=== PATIENT | male | born 1970 | race Caucasian/White ===

== ENCOUNTER 2019-05-13 19:51 | Inpatient (IN) | payer BC ==
--- NOTE | 2019-05-13 20:50 | ED ---
General Adult HPI - General Chief complaint: Weakness Stated complaint: SOB Time Seen by Provider: 05/13/19 20:04 Source: patient, RN/MD, RN notes reviewed, old records reviewed (Review of records from [facility]) Mode of arrival: EMS Limitations: no limitations - History of Present Illness Initial comments: Patient is a pleasant 48-year-old male presenting to the emergency Department with complaints of shortness of breath and dyspnea. Symptoms have progressed over the past 3 days. No history of similar symptoms previously. Patient does have known stage IV renal cancer with metastasis to the spine and brain. Patient does feel somewhat more short of breath with exertion. No significant cough. No chest pain. Patient feels generally weak all over. No isolated area of weakness or confusion. - Related Data Home Medications Medication Instructions Recorded Confirmed ALPRAZolam [Xanax] 1 mg PO TID PRN 05/13/19 05/13/19 ARIPiprazole [Abilify] 5 mg PO DAILY 05/13/19 05/13/19 Acetaminophen Tab [Tylenol Tab] 500 mg PO DAILY 05/13/19 05/13/19 Apixaban [Eliquis] 5 mg PO BID 05/13/19 05/13/19 Ascorbic Acid [Vitamin C] 500 mg PO BID 05/13/19 05/13/19 Citalopram Hydrobromide [CeleXA] 40 mg PO DAILY 05/13/19 05/13/19 Ferrous Sulfate [Feosol] 325 mg PO DAILY 05/13/19 05/13/19 Furosemide [Lasix] 20 - 40 mg PO DAILY 05/13/19 05/13/19 Gabapentin [Neurontin] 400 mg PO TID 05/13/19 05/13/19 Levothyroxine Sodium [Synthroid] 112 mcg PO DAILY 05/13/19 05/13/19 Polyethylene Glycol 3350 [Miralax] 17 gm PO DAILY PRN 05/13/19 05/13/19 Potassium Chloride ER [K-Dur 20] 20 meq PO DAILY 05/13/19 05/13/19 Tamsulosin [Flomax] 0.4 mg PO DAILY 05/13/19 05/13/19 Votrient 200mg 200 mg PO TID 05/13/19 05/13/19 oxyCODONE HCL [oxyCODONE HCL (IR)] 10 mg PO Q4H PRN 05/13/19 05/13/19 Allergies Allergy/AdvReac Type Severity Reaction Status Date / Time albuterol [From Ventolin HFA] AdvReac Unknown Verified 05/13/19 21:18 Review of Systems ROS Statement: Those systems with pertinent positive or pertinent negative responses have been documented in the HPI. ROS Other: All systems not noted in ROS Statement are negative. Constitutional: Denies: fever Eyes: Denies: eye pain ENT: Denies: ear pain Respiratory: Reports: as per HPI, dyspnea Cardiovascular: Denies: chest pain Endocrine: Denies: fatigue Gastrointestinal: Denies: abdominal pain Genitourinary: Denies: dysuria Musculoskeletal: Denies: back pain Skin: Denies: rash Neurological: Reports: as per HPI, headache Past Medical History Past Medical History: Cancer History of Any Multi-Drug Resistant Organisms: None Reported Additional Past Surgical History / Comment(s): R kidney removed due to CA Past Psychological History: No Psychological Hx Reported Smoking Status: Former smoker Past Alcohol Use History: None Reported Past Drug Use History: None Reported General Exam Limitations: no limitations General appearance: alert, in no apparent distress Head exam: Present: normocephalic Eye exam: Present: normal appearance ENT exam: Present: normal oropharynx Neck exam: Present: normal inspection Respiratory exam: Present: rales (Rales on the right side), decreased breath sounds (On the left side) Cardiovascular Exam: Present: regular rate, normal rhythm Expanded Peripheral pulses: 2+: Posterior Tibialis (R), Posterior Tibialis (L) GI/Abdominal exam: Present: soft. Absent: tenderness Extremities exam: Present: pedal edema. Absent: other Neurological exam: Present: alert Psychiatric exam: Present: flat affect Skin exam: Present: pallor, other (Patient does have some greenish discoloration to the legs which he states is chronic from his medications.) Course Vital Signs 05/13/19 19:57 Temperature 98.7 F Pulse Rate 98 Respiratory 22 Rate Blood Pressure 103/68 O2 Sat by Pulse 89 L Oximetry - Reevaluation(s) Reevaluation #1: 05/13/19 21:46 Chest x-ray report reviewed showing large left infiltrate, cannot rule out underlying atelectasis or infiltrates. There is some concern for possible infiltrate/pneumonia. Patient will be started on antibiotics. There is concern for potential sepsis. Blood culture and lactic acid will be ordered. Lactic acid done at [place] was 2.3. 05/13/19 21:51 Case was discussed in detail with Dr. pavon, who will admit. Medical Decision Making - Medical Decision Making Patient is updated on plan. - Radiology Data Radiology results: image reviewed (Review chest x-ray from [place] showing near complete opacification left lung field.) Disposition Clinical Impression: Pleural effusion Disposition: ADMITTED IP TO THIS HOSP Condition: Poor Is patient prescribed a controlled substance at d/c from ED?: No Referrals: Hang Elizalde MD [Primary Care Provider] - 1-2 days Decision Time: 21:44
[2019-05-13] MEDS ORDERED: AZITHROMYCIN 500 MG in SODIUM CHLORIDE 0.9% 250 ML IVPB STA (21:47)
[2019-05-13] MEDS ORDERED: PNEUMONIA PROTOCOL UTILIZED 1 EACH MISC PO PRN (21:47)
[2019-05-13] MEDS: SODIUM CHLORIDE 0.9% 1,000 ML IV SCH (22:53)
[2019-05-14 01:12] VITALS: BMI 30.4
--- NOTE | 2019-05-14 09:29 | XR ---
EXAMINATION TYPE: XR chest 2V DATE OF EXAM: 05/14/2019 COMPARISON: Outside chest x-ray from yesterday. HISTORY: Pneumonia and cough. TECHNIQUE: Frontal and lateral views of the chest are obtained. FINDINGS: There is redemonstration of right-sided [employer] shunt catheter. There is redemonstration of lar ge Maldonado rods from attempted scoliotic correction surgery. Completely opacified left hemithorax with perhaps slight mediastinal shift away is redemonstrated. Silhouetting left heart border again se en. Right lung remains clear.. IMPRESSION: As above. Cannot exclude large effusion. Cannot exclude obstructing central mass. Consid er further investigation with CT and/or ultrasound.
--- NOTE | 2019-05-14 09:49 | US ---
EXAMINATION TYPE: US chest DATE OF EXAM: 05/14/2019 COMPARISON: Chest x-ray earlier today. CLINICAL HISTORY: Markings for thoracentesis for pulmonary staff. Left pleural effusion TECHNIQUE: Targeted ultrasound of the posterior lower left hemithorax EXAM MEASUREMENTS: Left Pleural Effusion pocket size: 15.0 cm Left skin surface to fluid distance: 5.1 cm Left side marked for possible thoracentesis outside the dept. Pulmonologists are able to review the images in the patient?s EMR. IMPRESSIONS: Images saved confirming large left pleural effusion.
--- NOTE | 2019-05-14 11:23 | P.CONS ---
History of Present Illness - Reason for Consult Consult date: 05/14/19 metastatic RCC on votrient Requesting physician: Ruben Coy - Chief Complaint YU - History of Present Illness Mr. Sagastume is a very pleasant male pt of Dr. Rios initially diagnosed with right kidney cancer in 2013. He had radical rt nephrectomy 11/23/2013. Pathology revealed 12.2cm clear cell carcinoma, focally invaded renal sinus fat but not beyond gerota fascia, staged pT3aNx disease. He did well until May 2017 when he presented with dizziness and progressive back pain. MRI of thoracic spine showed soft tissue mass and spinal cord compression at T9-T10 and T11, there was also a solitary cerebellar lesion. Had decompression laminectomy and resection of T spine mass on 05/29/2017 and resection of the cerbellar lesion on 06/07/2017 at [facility]. Pathology revealed clear cell carcinoma. He had complication with wound infection and unfortunately he developed local recurrence in cerebellum and development of meningocele and further progression of T spine lesions. He was referred to [facility], underwent another craniotomy with resection of cerebellar lesion and placement of ventriculoperitoneal shunt on 08/22/17 and further laminectomy of T spine on 08/27/17. CT abd 08/16/17 revealed bilateral pulmonary nodules suspicious for metastatic disease. He completed palliative radiation to brain and thoracic spine at [facility] on 10/02/17. Developed DVT in September,, placed on eliquis. CT chest 10/16/17 revealed 3.2cm mediastinal node, small lung nodules up to 7mm, small right pleural effusion. He started votrient 10/19/17 and zometa. Treatment f/u scans 01/02/18-04/21/19 were stable, with no evidence of progression. Pt was suggested to reduce votrient dose when he last seen Dr. Rios on 04/28 due to progressive anorexia, some diarrhea but, pt turned med over to RN and states he is taking 4-which is the full dose. Progressive memory loss, felt could be from previous brain radiation. Pt states progressive difficulty breathing, denied fever, nausea, vomiting, abd pain, bloating, cramping, dysuria, unaware of any bleeding, no swelling in the legs, ambulates with assistive device. Review of Systems 14 point review of systems is negative except as stated in HPI Past Medical History Past Medical History: Cancer History of Any Multi-Drug Resistant Organisms: None Reported Past Surgical History: Orthopedic Surgery Additional Past Surgical History / Comment(s): R kidney removed due to CA, back Past Psychological History: No Psychological Hx Reported Smoking Status: Former smoker Past Alcohol Use History: None Reported Past Drug Use History: None Reported Medications and Allergies Home Medications Medication Instructions Recorded Confirmed Type ALPRAZolam [Xanax] 1 mg PO TID PRN 05/13/19 05/13/19 History ARIPiprazole [Abilify] 5 mg PO DAILY 05/13/19 05/13/19 History Acetaminophen Tab [Tylenol Tab] 500 mg PO DAILY 05/13/19 05/13/19 History Apixaban [Eliquis] 5 mg PO BID 05/13/19 05/13/19 History Ascorbic Acid [Vitamin C] 500 mg PO BID 05/13/19 05/13/19 History Citalopram Hydrobromide [CeleXA] 40 mg PO DAILY 05/13/19 05/13/19 History Ferrous Sulfate [Feosol] 325 mg PO DAILY 05/13/19 05/13/19 History Furosemide [Lasix] 20 - 40 mg PO DAILY 05/13/19 05/13/19 History Gabapentin [Neurontin] 400 mg PO TID 05/13/19 05/13/19 History Levothyroxine Sodium [Synthroid] 112 mcg PO DAILY 05/13/19 05/13/19 History Polyethylene Glycol 3350 [Miralax] 17 gm PO DAILY PRN 05/13/19 05/13/19 History Potassium Chloride ER [K-Dur 20] 20 meq PO DAILY 05/13/19 05/13/19 History Tamsulosin [Flomax] 0.4 mg PO DAILY 05/13/19 05/13/19 History Votrient 200mg 200 mg PO TID 05/13/19 05/13/19 History oxyCODONE HCL [oxyCODONE HCL (IR)] 10 mg PO Q4H PRN 05/13/19 05/13/19 History Allergies Allergy/AdvReac Type Severity Reaction Status Date / Time albuterol [From Ventolin HFA] AdvReac Unknown Verified 05/13/19 21:18 Physical Exam Vitals: Vital Signs Temp Pulse Pulse Resp BP BP Pulse Ox 05/14/19 05:37 98.5 F 84 16 111/76 91 L 05/14/19 05:10 94 L 05/14/19 01:40 93 L 05/14/19 00:10 98.6 F 85 16 91/67 88 L 05/13/19 22:19 97 22 107/80 93 L 05/13/19 19:57 98.7 F 98 22 103/68 89 L Intake and Output 05/13/19 05/14/19 05/14/19 22:59 06:59 14:59 Intake Total 250 Balance 250 Intake: Intake, IV Titration 250 Amount Azithromycin 500 mg In 250 Sodium Chloride 0.9% 250 ml @ 250 mls/hr IVPB ONCE STA Rx#:[id number] Other: Weight 88.269 kg - Constitutional General appearance: average body habitus, cooperative, no acute distress - EENT Eyes: anicteric sclerae, EOMI ENT: hearing grossly normal, normal oropharynx - Neck Neck: no lymphadenopathy - Respiratory Respiratory: right: CTA, left: diminished (Dullness to percussion in the lower portion of the lung posterior chest) - Cardiovascular Rhythm: regular Heart sounds: normal: S1, S2 Abnormal Heart Sounds: no systolic murmur, no diastolic murmur, no rub, no S3 Gallop, no S4 Gallop, no click, no other leg Peripheral Edema: bilateral: None - Gastrointestinal General gastrointestinal: no absent bowel sounds, no decreased bowel sounds, no distended, no hepatomegaly, no hyperactive bowel sounds, normal bowel sounds, no organomegaly, no rigid, no scaphoid, soft, no splenomegaly, no tenderness, no umbilical hernia, no ventral hernia - Integumentary Integumentary: pale - Neurologic Neurologic: CNII-XII intact - Musculoskeletal Musculoskeletal: generalized weakness, strength equal bilaterally - Psychiatric Mild confusion when discussing medications Psychiatric: A&O x's 3, appropriate affect Results Labs: Abnormal Lab Results - Last 24 Hours (Table) 05/13/19 Range/Units 22:24 Plasma Lactic Acid [place] 2.3 H* (0.7-2.0) mmol/L Comments: Ultrasound of the chest report reviewed Chest x-ray: report reviewed Assessment and Plan (1) Pleural effusion Narrative/Plan: US done, plan for thoracentesis for palliation of symptoms. Pulm will send for cytology. I am not aware of any previous malignant effusions. If positive, could indicate disease progression. Current Visit: Yes Status: Acute Priority: High Code(s): J90 - PLEURAL EFFUSION, NOT ELSEWHERE CLASSIFIED SNOMED Code(s): 00118424 (2) Metastatic renal cell carcinoma Narrative/Plan: Pt has been on votrient for since about 10/2017. Nost recent scan 04/23 did not have evidence for disease progression. Will hold votrient for a few days while inpatient. Pending thoracentesis and cytology He has to continue to hold zometa for bone mets due to poor dentition Current Visit: Yes Status: Chronic Priority: High Code(s): C64.9 - MALIGNANT NEOPLASM OF UNSP KIDNEY, EXCEPT RENAL PELVIS SNOMED Code(s): 638188310 (3) DVT (deep venous thrombosis) Narrative/Plan: Cont eliquis for now Current Visit: No Status: Chronic Priority: Medium Code(s): I82.409 - ACUTE EMBOLISM AND THOMBOS UNSP DEEP VN UNSP LOWER EXTREMITY SNOMED Code(s): 559064165 Plan: Will request CBC and CMP for eval Pt was incontinent of stool with very foul odor-send for c-diff and occult (very dark color) Cardiac monitoring Attests: I have performed H&P and developed impression and plan of care of patient, discussed with dictator. I agree with dictated note, documented as a scribe.
[2019-05-14] MEDS ORDERED: POLYETHYLENE GLYCOL 3350 17 GM POWD.PACK PO PRN (11:25)
[2019-05-14] MEDS: ALPRAZolam 1 MG TAB PO SCH ×2 (12:08→21:03)
[2019-05-14] MEDS: GABAPENTIN 400 MG CAP PO SCH ×3 (12:08→21:03)
--- NOTE | 2019-05-14 14:25 | XR ---
EXAMINATION TYPE: XR chest 1V DATE OF EXAM: 05/14/2019 COMPARISON: 05/14/2019 HISTORY: Postthoracentesis TECHNIQUE: Single frontal view of the chest is obtained. FINDINGS: Interval reduction in amount pleural fluid on the left with persistent consolidation and p leural effusion suspected. No sizable pneumothorax. There is a [employer] shunt catheter overlying the right thorax and abdomen. Right lung is clear. Heart is enlarged. Arthropathy of the shoulders. Postsurgica l changes involving the vertebral column. IMPRESSION: 1. Improved aeration left hemithorax post thoracentesis with no sizable pneumothorax.
[2019-05-14] MEDS: BUDESONIDE 1 MG/2 ML NEBU INHALATION SCH ×2 (15:19→19:24)
--- NOTE | 2019-05-14 15:29 | HP ---
HISTORY AND PHYSICAL DATE OF SERVICE: 05/14/2019 CHIEF COMPLAINT: Diarrhea as well as shortness of breath. HISTORY OF PRESENT ILLNESS: This is a 48-year-old gentleman with a past medical history of multiple medical problems including metastatic renal cell carcinoma, history of right kidney cancer, being followed by Tonio Blackman and as well as Dr. Rios in the outpatient setting was noted to have increasing shortness of breath and as well as diarrhea. The patient is on immune chemotherapy. The patient is also complaining of weak also. The patient has also with change in his mental status. The patient is rather confused on and off according to the family, according to the . The gurgling and shortness of breath concerned the and the patient. The patient was taken to [facility] and subsequently sent to [facility] for further evaluation and treatment. Evaluation showed evidence of significant pleural effusion and possibly atelectasis of the left side of the lung and patient admitted for further evaluation and treatment. A detailed history cannot be taken of the patient because of the patient's change in mental status. Most of the history was taken from my discussion with staff, review of chart and also discussion with the at this time. PAST MEDICAL HISTORY: History of renal cell carcinoma with multiple mets as mentioned earlier, history of DJD. MEDICATIONS: Prior to admission, home medications are: 1. Oxycodone 10 mg q.4 p.r.n. 2. Votrient 200 mg p.o. t.i.d. 3. Flomax 0.4 daily. 4. K-Dur 20 mEq p.o. daily. 5. MiraLAX 17 g p.o. daily p.r.n. 6. Synthroid 112 mcg p.o. daily. 7. Neurontin 400 mg p.o. t.i.d. 8. Lasix 20-40 mg p.o. daily. 9. Iron sulfate 320 mg p.o. daily. 10.Celexa 40 mg p.o. daily. 11.Vitamin C 500 mg p.o. b.i.d. 12.Eliquis 5 mg p.o. b.i.d. 13.Tylenol 500 mg p.o. daily. 14.Abilify 5 mg p.o. daily. 15.Xanax 1 mg p.o. t.i.d. p.r.n. ALLERGIES: ALBUTEROL. FAMILY HISTORY: No history of heart disease or strokes in the family. SOCIAL HISTORY: Previous history of smoking. No history of alcohol intake. REVIEW OF SYSTEMS: ENT: No diminished hearing or diminished vision. CARDIOVASCULAR SYSTEM: No angina or palpitations. RESPIRATORY: As mentioned earlier. GI: No nausea. : No dysuria. NERVOUS SYSTEM: No numbness or weakness. ALLERGY/IMMUNOLOGY: No asthma or hayfever. MUSCULOSKELETAL: As mentioned earlier. HEMATOLOGY: No history of anemia. ENDOCRINE: No history of diabetes or hypothyroidism. CONSTITUTIONAL: As mentioned earlier. DERMATOLOGY: Negative. PSYCHIATRY: As mentioned earlier. PHYSICAL EXAM: Patient is alert and oriented x1. Pulse 82, blood pressure 101/62, respiration 20, temperature 98.5, pulse ox 98% on 4 L. HEENT: Conjunctivae normal. Oral mucosa moist. NECK: No jugular venous distention. No lymph node enlargement. CARDIOVASCULAR SYSTEM: S1, S2, muffled. RESPIRATION: Breath sounds diminished at the bases, a few scattered rhonchi, no crackles. ABDOMEN: Soft, nontender. No mass palpable. LEGS: No edema, no swelling. NERVOUS SYSTEM: Higher functions as mentioned earlier. Moves all 4 limbs. No focal motor deficits. LYMPHATICS: No lymph node enlargement in the neck or axillae. SKIN: No ulcer, rash, bleeding. JOINTS: No active deforming arthropathy. LABS: Lactic acid 2.3. ASSESSMENT: 1. Shortness of breath, possibly secondary to left pleural effusion, left lobe atelectasis. 2. Renal cell carcinoma with metastatic disease. 3. Change in mental status, acute on chronic metabolic encephalopathy secondary to brain METS. 4. History of degenerative joint disease. RECOMMENDATION: This is a 48-year-old gentleman who presented with multiple complex medical issues. At this time, I would recommend to continue with the current management and symptomatic treatment. Otherwise, Dr. Hernández has evaluated the patient and planning possibly thoracocentesis. Otherwise, I would also recommend empiric bronchodilators and as well continue the rest of the home medications. Consultation with Hematology, Oncology. I would also recommend a CAT scan of the abdomen and pelvis also and chest as well. The overall prognosis guarded because of multiple complex medical issues. Further recommendations to follow. A copy of this will be forwarded to Dr. Tonio Blackman who is the primary physician. MMODL / IJN: [id number] / MTDD
[2019-05-14 15:43] LABS: Albumin 2.7 g/dL (3.5-5.0); Total Bilirubin 0.7 mg/dL (0.2-1.3); Total Protein 5.4 g/dL (6.3-8.2)
[2019-05-14 15:55] LABS: Anisocytosis Slight; Basophils % (A) 1 %; Eosinophils % (A) 0 %; HCT 35.8 % (39.0-53.0); HGB 11.2 gm/dL (13.0-17.5); Hypochromasia Marked; Lymphocytes # (A) 0.3 k/uL (1.0-4.8); Lymphocytes % (A) 8 %; MCH 32.7 pg (25.0-35.0); MCHC 31.3 g/dL (31.0-37.0); MCV 104.4 fL (80.0-100.0); Macrocytosis Marked; Mean Platelet Volume 6.2; Monocytes # (A) 0.2 k/uL (0-1.0); Monocytes % (A) 7 %; Neutrophils # (A) 2.7 k/uL (1.3-7.7); Neutrophils % (A) 80 %; Platelet Count 291 k/uL (150-450); Poikilocytosis Marked; RBC 3.43 m/uL (4.30-5.90); RDW 19.1 % (11.5-15.5); WBC 3.3 k/uL (3.8-10.6)
[2019-05-14] MEDS ORDERED: GABAPENTIN 400 MG CAP PO SCH (16:00)
[2019-05-14] MEDS ORDERED: ALPRAZolam 1 MG TAB PO SCH (16:00)
[2019-05-14 16:13] LABS: Appearance,BF Bloody; Nucleated Cells, Body Fluid 500 /uL; RBC, Body Fluid 125000 /uL
[2019-05-14 16:14] LABS: Mononuclear WBC,Body Fluid 51 %; Polynuclear WBC,Body Fluid 49 %; Total Cells Counted,Body Fluid 100
--- NOTE | 2019-05-14 16:16 | CT ---
EXAMINATION TYPE: CT ChestAbdPelvis wo con DATE OF EXAM: 05/14/2019 COMPARISON: Chest radiograph same day HISTORY: 48-year-old male Left pleural effusion TECHNIQUE: Contiguous axial scanning of the chest, abdomen, and pelvis without IV contrast. Coronal a nd sagittal reconstructions performed. CT DLP: 1443 mGycm Automated exposure control for dose reduction was used. FINDINGS: CHEST: Heart normal size with trace pericardial thickening/effusion. Aorta normal caliber with mild atherosclerotic calcifications in bovine configuration to the aortic a rch. Scattered small mediastinal lymph nodes are demonstrated. No thoracic lymphadenopathy by CT size crit eria. There is residual moderate left pleural effusion. Left upper lobe shows some septal lines and patchy groundglass and more confluent groundglass and consolidation within the lingula. Most of the left low er lobe is collapsed adjacent to the effusion. There is some luminal irregularity of the proximal left lower lobar bronchus, refer to axial image 27 . Focal subpleural opacity posteromedial right mid lung measures 4.0 x 1.1 cm, uncertain etiology, poss ible scarring. Trace right effusion is also present. Difficult to exclude nodular atelectasis versus a 1.3 cm posterior right basilar pulmonary nodule. ABDOMEN: Lack of IV contrast limits assessment of the solid abdominal viscera, lymph nodes, and vascular struc tures. Noncontrast appearance of the liver, left adrenal gland, and atrophic pancreas shows no gross abnorma lity. Right kidney is absent, possibly surgically absent. Gallbladder is hydropic and 5.1 cm wide and filled with sludge. No surrounding inflammation. Left-sided perinephric stranding and mild pelvicaliectasis suggested. No obstructing calculi. Underly ing renal lesions particularly at the lower pole are difficult to exclude given the lobulated contour s, refer to coronal image 53 and axial image 73. A [employer] shunt catheter enters the anterior right mid abdomen and is looped in the pelvis. No dilated small bowel, free fluid, or free air. Mild circumferential wall thickening descending colon and proximal sigmoid colon. No significant stoo l burden. Pelvis: Bladder is markedly distended measuring up to 14.1 cm. No pelvic lymphadenopathy. Trace pelvic free f luid or abnormal in a male possibly due to the [employer] shunting. Bones: Posterior fusion hardware extending from T7 through L2 levels. Vertebroplasty at multiple levels. Foc al scalloping along the posterior vertebral body margins lower thoracic spine may reflect prior dural ectasia. Laminectomy spanning from T8 through T12 levels. Grade 1 anterolisthesis at L4-L5 secondary to hypertrophic facet arthropathy. IMPRESSION: 1. RESIDUAL MODERATE LEFT PLEURAL EFFUSION. SEPTAL LINES AND PATCHY GROUNDGLASS IN THE LEFT UPPER LOB E IS NONSPECIFIC AND COULD REPRESENT PNEUMONITIS OR EARLY REEXPANSION PULMONARY EDEMA. MORE EXTENSIVE OPACITY IN THE LINGULA COULD REPRESENT PNEUMONIA. FOLLOW-UP RECOMMENDED. 2. SOME BRONCHIAL WALL IRREGULARITY INVOLVING THE PROXIMAL LEFT LOWER LOBAR BRANCH. CONSIDER BRONCHOS COPIC EVALUATION TO EXCLUDE AN ENDOBRONCHIAL LESION. 3. MOST OF THE LEFT LOWER LOBE IS COLLAPSED ADJACENT TO THE EFFUSION. 4. TRACE RIGHT EFFUSION AND FOCAL 4.0 X 1.1 CM SUBPLEURAL DENSITY POSTEROMEDIAL RIGHT MID LUNG, POSSI BLE SCARRING. REASSESS AT A 3 MONTH FOLLOW-UP. ALSO, EITHER NODULAR ATELECTASIS OR A 1.3 CM POSTERIOR RIGHT BASILAR PULMONARY NODULE SHOULD ALSO BE REASSESSED AT FOLLOW-UP. 5. THE RIGHT KIDNEY IS ABSENT, POSSIBLY ON A SURGICAL BASIS. CLINICALLY CORRELATE. 6. LEFT-SIDED PERINEPHRIC STRANDING AND MILD PELVICALIECTASIS. CORRELATE TO EXCLUDE UNDERLYING INFECT ION. ALSO, PROMINENT CONTOUR LOBULATIONS ALONG THE LOWER POLE; UNDERLYING MASS NOT EXCLUDED ON THIS N ONCONTRAST STUDY. CONTRAST ENHANCED FOLLOW-UP RECOMMENDED. 7. MILD CIRCUMFERENTIAL WALL THICKENING DESCENDING AND PROXIMAL SIGMOID COLON COULD BE SECONDARY TO N ONDISTENTION OR NONSPECIFIC MILD COLITIS. 8. MARKED URINARY BLADDER DISTENTION UP TO 14.1 CM. PLEASE CORRELATE TO ENSURE THAT THIS REPRESENTS V OLUNTARY RETENTION.
[2019-05-14 16:26] LABS: Potassium 4.4 mmol/L (3.5-5.1)
--- NOTE | 2019-05-14 20:14 | CONS ---
CONSULTATION This is a pulmonary/critical care consultation. REASON FOR CONSULTATION: Shortness of breath and weakness. This is a patient who was transferred down from [facility]. This is a 48- year-old gentleman with a history of advanced stage IV hypernephroma. 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 He complains of shortness of breath. He was found to have complete opacification or near-complete opacification of the left lung. Appears to have a large left pleural effusion, likely malignant. Today, we did a thoracentesis on the left side. We removed 2100 mL from the left pleural space. His post thoracentesis x-ray showed additional fluid there and I am going to have Cardiothoracic see the patient for possible PleurX catheter placement because I am sure the fluid will return. The fluid was sent for analysis. The results are currently pending. He did feel better after the procedure. HOME MEDICATIONS: Include Xanax, Abilify, Tylenol, Eliquis, vitamin C, Celexa, iron, Lasix, Neurontin, Synthroid, MiraLAX, K-Dur, Flomax, Votrient, and oxycodone. ALLERGIES: ALBUTEROL. PAST MEDICAL HISTORY: Includes kidney cancer, stage IV, with METS to the brain and spine. The right kidney was actually removed in the past. Other history is not well known other than probable hypothyroidism and anxiety. He also has chronic anemia. SURGICAL HISTORY: Includes a right-sided nephrectomy. SOCIAL HISTORY: Positive for previous tobacco use. He denies any alcohol use or illicit drug use. FAMILY HISTORY: Noncontributory. His father is still alive and is relatively healthy and runs a jail up in that area. His father does have history of coronary disease. REVIEW OF SYSTEMS: CONSTITUTIONAL: Profound weakness. NEUROLOGIC negative. HEENT negative. CARDIOVASCULAR negative. PULMONARY: Shortness of breath. GI negative. negative. RHEUMATOLOGIC negative. IMMUNOLOGIC negative. ENDOCRINOLOGIC negative. DERMATOLOGIC negative. PHYSICAL EXAMINATION: VITAL SIGNS: Current vital signs are reviewed. Temperature 98.5. Heart rate 88, respiratory rate 20, blood pressure 104/66, mean 78. 5 L saturation 91%. GENERAL: Appears in no acute distress. He is very slow in his speech. HEENT examination is grossly unremarkable. Nasal O2 noted. NECK: Supple. Full range of motion. No adenopathy. Neck veins are flat. CARDIOVASCULAR examination reveals regular rhythm and rate. Heart sounds are distant. Heart rate about 85 beats per minute. No distinct murmur noted. S1, S2 normal. LUNGS: Reveal significantly impaired or decreased breath sounds on the left side. There is dullness in the left chest. Right chest is clear. ABDOMEN: Soft. Bowel sounds are heard. EXTREMITIES are intact. Minimal edema. SKIN: Without rash. NEUROLOGIC examination is brief but nonfocal. He does move all 4 extremities well. He also does have a well-healed scar in the midline of the back. LAB DATA: Reviewed. The only thing that I have on this patient here in this hospital is a lactic acid that was 2.3 and followup was 1.2. His N-terminal proBNP was 1200. His stools were positive for occult blood. C difficile studies are negative. His chest x-ray showed near complete opacification of left chest. Ultrasound revealed a large pleural effusion. Post thoracentesis x-ray was reviewed and showed improvement, but there was still quite a bit of fluid there. Medications are reviewed. ASSESSMENT: 1. Probable malignant left-sided effusion secondary to the patient's known history of advanced metastatic hypernephroma. 2. Status post right nephrectomy secondary to kidney cancer. 3. Metastatic hypernephroma of the spine and brain. 4. History of hypothyroidism. 5. History of anxiety. 6. Previous tobacco history. PLAN: Medications are reviewed. Additional recommendations and suggestions are forthcoming. I will put a consult in for Cardiothoracic surgery to consider placement of a PleurX catheter. Additional recommendations and suggestions are forthcoming. MMODL / IJN: [id number] /
[2019-05-14 20:29] LABS: Glucose, BF Source Pleural Fluid; Glucose, Body Fluid 39 mg/dL; Total Protein, Body Fluid 3800 mg/dL
--- NOTE | 2019-05-14 20:50 | PCN ---
PROCEDURE NOTE PROCEDURE PERFORMED: Left thoracentesis. PREOP DIAGNOSIS: Large left pleural effusion. POSTOP DIAGNOSIS: Large left pleural effusion. OPERATORS: Dr. Hernández and Dr. Samson. DESCRIPTION OF PROCEDURE: Left posterior chest was marked by ultrasound. The fluid will be sent for analysis. Roughly 2100 mL of fluid was removed from the left pleural space. The patient tolerated the procedure well. A chest x-ray was ordered to rule out pneumothorax. The fluid was bloody in appearance. Again, the patient tolerated procedure well. Chest x- ray ordered. The fluid will be sent for analysis. The posterior left chest was marked by ultrasound. There was no immediate complication. MMODL / IJN: [id number] /
[2019-05-14] MEDS ORDERED: ALPRAZolam 0.5 MG TAB PO PRN (21:00)
[2019-05-14] MEDS ORDERED: AZITHROMYCIN 500 MG TAB PO SCH (21:48)
[2019-05-15] MEDS: ALPRAZolam 1 MG TAB PO SCH ×4 (00:10→21:51)
[2019-05-15] MEDS: SODIUM CHLORIDE 0.9% 1,000 ML IV SCH ×2 (03:48→21:52)
[2019-05-15] MEDS: LEVOTHYROXINE 112 MCG TAB PO SCH (05:58)
[2019-05-15] MEDS: CITALOPRAM HYDROBROMIDE 20 MG TAB PO SCH (08:03)
[2019-05-15] MEDS: GABAPENTIN 400 MG CAP PO SCH ×3 (08:03→21:51)
[2019-05-15] MEDS: ARIPiprazole 5 MG TAB PO SCH (08:04)
[2019-05-15] MEDS: FERROUS SULFATE 325 MG TAB PO SCH (08:04)
[2019-05-15] MEDS: ACETAMINOPHEN TAB 500 MG TAB PO SCH (08:04)
[2019-05-15] MEDS: TAMSULOSIN 0.4 MG CAP.ER.24H PO SCH (08:04)
[2019-05-15] MEDS: FUROSEMIDE 40 MG TAB PO SCH (08:04)
[2019-05-15 08:55] LABS: Anisocytosis Slight; Basophils # (A) 0.1 k/uL (0-0.2); Basophils % (A) 2 %; Calcium 8.1 mg/dL (8.4-10.2); Eosinophils # (A) 0.1 k/uL (0-0.7); Eosinophils % (A) 2 %; HGB 12.2 gm/dL (13.0-17.5); Hypochromasia Marked; Lymphocytes # (A) 0.4 k/uL (1.0-4.8); Lymphocytes % (A) 13 %; MCH 33.7 pg (25.0-35.0); MCV 105.3 fL (80.0-100.0); Macrocytosis Marked; Mean Platelet Volume 6.1; Monocytes # (A) 0.3 k/uL (0-1.0); Monocytes % (A) 8 %; Neutrophils # (A) 2.2 k/uL (1.3-7.7); Neutrophils % (A) 71 %; Platelet Count 257 k/uL (150-450); Poikilocytosis Marked; RBC 3.61 m/uL (4.30-5.90); RDW 19.1 % (11.5-15.5); WBC 3.1 k/uL (3.8-10.6)
[2019-05-15] MEDS: BUDESONIDE 1 MG/2 ML NEBU INHALATION SCH ×2 (09:17→20:15)
--- NOTE | 2019-05-15 12:15 | P.PN ---
Subjective Progress Note Date: 05/15/19 Principal diagnosis: Acute hypoxic respiratory failure secondary to a near complete opacification of the left lung with large left pleural effusion. The patient is seen today 05/15/2019 in follow-up on the regular medical floor. He is awake and alert in no acute distress. Resting comfortably in bed. Breathing a bit easier today as compared to yesterday. On 5 L nasal cannula to maintain O2 saturations in the 90s. He is afebrile. Hemodynamically stable. He is status post 2100 ML's of bloody left pleural effusion removed yesterday by Dr. Hernández. Exudative in nature with the total protein 3.8 and LDH 626. Culture and cytology are pending. White count 3.1. Hemoglobin 12.2. Creatinine 1.26. Objective - Vital Signs Vital signs: Vital Signs Temp 98.7 F 05/15/19 05:00 Pulse 81 05/15/19 05:00 Resp 16 05/15/19 05:00 BP 103/68 05/15/19 05:00 Pulse Ox 98 05/15/19 05:00 Intake & Output 05/14/19 05/15/19 05/15/19 18:59 06:59 18:59 Intake Total 870 590 Output Total 1900 Balance -1030 590 Intake: Intake, IV Titration 290 Amount Sodium Chloride 0.9% 1, 240 000 ml @ 20 mls/hr IV . Q24H [facility] Rx#:[id number] cefTRIAXone 1 gm In 50 Sodium Chloride 0.9% 50 ml @ 100 mls/hr IVPB ONCE STA Rx#:[id number] Oral 580 590 Output: Drainage 1900 Left Chest 1900 Other: # Voids 1 1 # Bowel Movements 4 1 - Exam GENERAL EXAM: Alert, pleasant 48 year old gentleman, comfortable in no apparent distress. HEAD: Normocephalic. EYES: Normal reaction of pupils, equal size. NOSE: Clear with pink turbinates. THROAT: No erythema or exudates. NECK: No masses, no JVD. CHEST: No chest wall deformity. LUNGS: Equal air entry with crackles, diminished in the left lung base. CVS: S1 and S2 normal with no audible murmur, regular rhythm. ABDOMEN: No hepatosplenomegaly, normal bowel sounds, no guarding or rigidity. SPINE: No scoliosis or deformity SKIN: No rashes CENTRAL NERVOUS SYSTEM: Slow to respond due to shunting the brain from metastasi s. Tone is normal in all 4 extremities. EXTREMITIES: There is no peripheral edema. No clubbing, no cyanosis. Peripheral pulses are intact. - Labs CBC & Chem 7: 05/15/19 08:17 05/15/19 08:17 Labs: Abnormal Lab Results - Last 24 Hours (Table) 05/14/19 05/14/19 05/15/19 Range/Units 14:50 14:50 08:17 WBC 3.3 L 3.1 L (3.8-10.6) k/uL RBC 3.43 L 3.61 L (4.30-5.90) m/uL Hgb 11.2 L 12.2 L (13.0-17.5) gm/dL Hct 35.8 L 38.0 L (39.0-53.0) % MCV 104.4 H 105.3 H (80.0-100.0) fL RDW 19.1 H 19.1 H (11.5-15.5) % Lymphocytes # 0.3 L 0.4 L (1.0-4.8) k/uL Macrocytosis Marked A Marked A Sodium 132 L (137-145) mmol/L Chloride 92 L (98-107) mmol/L Carbon Dioxide 32 H (22-30) mmol/L BUN 26 H (9-20) mg/dL Creatinine 1.34 H (0.66-1.25) mg/dL Calcium 8.0 L (8.4-10.2) mg/dL Total Protein 5.4 L (6.3-8.2) g/dL Albumin 2.7 L (3.5-5.0) g/dL 05/15/19 Range/Units 08:17 WBC (3.8-10.6) k/uL RBC (4.30-5.90) m/uL Hgb (13.0-17.5) gm/dL Hct (39.0-53.0) % MCV (80.0-100.0) fL RDW (11.5-15.5) % Lymphocytes # (1.0-4.8) k/uL Macrocytosis Sodium 135 L (137-145) mmol/L Chloride (98-107) mmol/L Carbon Dioxide (22-30) mmol/L BUN (9-20) mg/dL Creatinine 1.26 H (0.66-1.25) mg/dL Calcium 8.1 L (8.4-10.2) mg/dL Total Protein (6.3-8.2) g/dL Albumin (3.5-5.0) g/dL Microbiology - Last 24 Hours (Table) 05/14/19 14:00 Gram Stain - Preliminary Pleural Fluid Body Fluid Culture - Preliminary 05/14/19 14:00 Acid Fast Bacilli Smear - Final Pleural Fluid Acid Fast Bacilli Culture - Preliminary 05/13/19 22:24 Blood Culture - Preliminary Blood No Growth after 24 hours 05/14/19 14:00 Fungal Culture - Preliminary Pleural Fluid Assessment and Plan Assessment: Impression: #1 Acute hypoxic respiratory failure secondary to moderate to large pleural effusion with near complete opacification of the left lung. Status post thoracentesis with 2.1 L of exudative fluid removed. Cultures and cytology pending. #2 Status post right nephrectomy secondary to kidney cancer. #3 Metastatic hypernephroma to the spine and brain. #4 Hypothyroidism. #5 History of anxiety. #6 Previous history of tobacco dependence. Plan: The patient was seen and evaluated by Dr. Hernández. We did consult cardiothoracic surgery for possible Pleurx catheter placement. The plan is for the procedure on 05/18/2019. We'll continue with his current medications. Increase his activity as tolerated. We'll continue to follow. I, the cosigning physician, performed a history & physical examination of the patient. Lungs sounds have crackles, diminished in the left base. Maintaining good O2 saturations in the 90s on 2 L/m per nasal cannula. I discussed the assessment and plan of care with my nurse practitioner, Mini Samson. I attest to the above note as dictated by her.
--- NOTE | 2019-05-15 14:18 | P.GSCN ---
History of Present Illness Consult date: 05/15/19 Reason for Consult: Left-sided pleural effusion, possible Pleurx catheter placement Requesting physician: Mini Samson History of present illness: This is a 48-year-old gentleman who follows on an outpatient basis with Dr. Elizalde, Dr. Rios, and Dr. Hernández. He has a previous medical history of renal cell carcinoma with metastasis to the brain and spine currently receiving oral chemotherapy, status post right nephrectomy, pulmonary embolism and bilateral DVTs on Eliquis for anticoagulation, [employer] shunt, back surgery for resection of spinal tumor, previous tobacco dependence, and previous EtOH use. He presented to [facility] emergency room with complaints of worsening shortness of breath and productive cough over the previous 2-3 days. He denied any fever, lower extremity edema, chest pain, nausea, vomiting. States his symptoms were worse worse with exertion and partially relieved with rest. He checked his oxygen saturation as was found to be 81% on room air. Chest x-ray completed at [facility] demonstrated complete opacification of the left lung, consistent with large left pleural effusion. He was transferred to [facility] for further treatment, and was admitted with consultation placed to pulmonology. Yesterday Dr. Hernández performed a thoracentesis with removal of 2100 mL bloody fluid which was sent for cytology. Post thoracentesis x-ray demonstrated fluid still present, although the patient did admit to feeling better. Dr. De La Rosa from cardiothoracic surgery was consulted for placement of Pleurx catheter. Review of Systems Review of systems was completed and was negative except as noted in the HPI Past Medical History Past Medical History: Cancer, Deep Vein Thrombosis (DVT), Pulmonary Embolus (PE) Additional Past Medical History / Comment(s): Renal cell carcinoma diagnosed in 2013 with metastasis to the brain and spine History of Any Multi-Drug Resistant Organisms: None Reported Past Surgical History: Back Surgery, Orthopedic Surgery, Ventriculoperitoneal Shunt Additional Past Surgical History / Comment(s): R kidney removed due to CA, back Past Anesthesia/Blood Transfusion Reactions: No Reported Reaction Past Psychological History: No Psychological Hx Reported Smoking Status: Former smoker Past Alcohol Use History: None Reported Additional Past Alcohol Use History / Comment(s): Recovering alcoholic Past Drug Use History: None Reported - Past Family History Father History Unknown: Yes Additional Family Medical History / Comment(s): Patient was adopted, does not know any family history Medications and Allergies Home Medications Medication Instructions Recorded Confirmed Type ALPRAZolam [Xanax] 1 mg PO TID PRN 05/13/19 05/13/19 History ARIPiprazole [Abilify] 5 mg PO DAILY 05/13/19 05/13/19 History Acetaminophen Tab [Tylenol Tab] 500 mg PO DAILY 05/13/19 05/13/19 History Apixaban [Eliquis] 5 mg PO BID 05/13/19 05/13/19 History Ascorbic Acid [Vitamin C] 500 mg PO BID 05/13/19 05/13/19 History Citalopram Hydrobromide [CeleXA] 40 mg PO DAILY 05/13/19 05/13/19 History Ferrous Sulfate [Feosol] 325 mg PO DAILY 05/13/19 05/13/19 History Furosemide [Lasix] 20 - 40 mg PO DAILY 05/13/19 05/13/19 History Gabapentin [Neurontin] 400 mg PO TID 05/13/19 05/13/19 History Levothyroxine Sodium [Synthroid] 112 mcg PO DAILY 05/13/19 05/13/19 History Polyethylene Glycol 3350 [Miralax] 17 gm PO DAILY PRN 05/13/19 05/13/19 History Potassium Chloride ER [K-Dur 20] 20 meq PO DAILY 05/13/19 05/13/19 History Tamsulosin [Flomax] 0.4 mg PO DAILY 05/13/19 05/13/19 History Votrient 200mg 200 mg PO TID 05/13/19 05/13/19 History oxyCODONE HCL [oxyCODONE HCL (IR)] 10 mg PO Q4H PRN 05/13/19 05/13/19 History Allergies Allergy/AdvReac Type Severity Reaction Status Date / Time albuterol [From Ventolin HFA] AdvReac Unknown Verified 05/13/19 21:18 Surgical - Exam Vital Signs Temp Pulse Resp BP Pulse Ox 98.7 F 98 22 103/68 89 L 05/13/19 19:57 05/13/19 19:57 05/13/19 19:57 05/13/19 19:57 05/13/19 19:57 - General well developed, well nourished, no distress, no pain, chronically ill - Eyes PERRL, normal ocular movement - ENT no hearing loss - Neck no masses, no bruits, trachea midline - Respiratory Lungs sounds diminished on the left-hand side. Respirations even, nonlabored. Currently on 5 L nasal cannula with oxygen saturation 95%. - Cardiovascular S1, S2 present. Tachycardic but regular rate and rhythm, sinus tach on t elemetry. Palpable peripheral pulses bilaterally. Trace bilateral lower extremity edema present. No calf pain or tenderness noted. - Abdomen Abdomen: soft, non tender, bowel sounds - Genitourinary Deferred - Rectum Deferred - Integumentary no rash, no growths - Neurologic normal sensation - Musculoskeletal Generalized weakness present - Psychiatric Speech is slow and very quiet oriented to time, oriented to person, oriented to place Results - Labs 05/15/19 08:17 05/15/19 08:17 Abnormal Lab Results - Last 24 Hours (Table) 05/14/19 05/14/19 05/15/19 Range/Units 14:50 14:50 08:17 WBC 3.3 L 3.1 L (3.8-10.6) k/uL RBC 3.43 L 3.61 L (4.30-5.90) m/uL Hgb 11.2 L 12.2 L (13.0-17.5) gm/dL Hct 35.8 L 38.0 L (39.0-53.0) % MCV 104.4 H 105.3 H (80.0-100.0) fL RDW 19.1 H 19.1 H (11.5-15.5) % Lymphocytes # 0.3 L 0.4 L (1.0-4.8) k/uL Macrocytosis Marked A Marked A Sodium 132 L (137-145) mmol/L Chloride 92 L (98-107) mmol/L Carbon Dioxide 32 H (22-30) mmol/L BUN 26 H (9-20) mg/dL Creatinine 1.34 H (0.66-1.25) mg/dL Calcium 8.0 L (8.4-10.2) mg/dL Total Protein 5.4 L (6.3-8.2) g/dL Albumin 2.7 L (3.5-5.0) g/dL 05/15/19 Range/Units 08:17 WBC (3.8-10.6) k/uL RBC (4.30-5.90) m/uL Hgb (13.0-17.5) gm/dL Hct (39.0-53.0) % MCV (80.0-100.0) fL RDW (11.5-15.5) % Lymphocytes # (1.0-4.8) k/uL Macrocytosis Sodium 135 L (137-145) mmol/L Chloride (98-107) mmol/L Carbon Dioxide (22-30) mmol/L BUN (9-20) mg/dL Creatinine 1.26 H (0.66-1.25) mg/dL Calcium 8.1 L (8.4-10.2) mg/dL Total Protein (6.3-8.2) g/dL Albumin (3.5-5.0) g/dL Microbiology - Last 24 Hours (Table) 05/14/19 14:00 Gram Stain - Preliminary Pleural Fluid Body Fluid Culture - Preliminary 05/14/19 14:00 Acid Fast Bacilli Smear - Final Pleural Fluid Acid Fast Bacilli Culture - Preliminary 05/13/19 22:24 Blood Culture - Preliminary Blood No Growth after 24 hours 05/14/19 14:00 Fungal Culture - Preliminary Pleural Fluid Diabetes panel 05/14/19 05/15/19 Range/Units 14:50 08:17 Sodium 132 L 135 L (137-145) mmol/L Potassium 4.4 4.0 (3.5-5.1) mmol/L Chloride 92 L 98 (98-107) mmol/L Carbon Dioxide 32 H 27 (22-30) mmol/L BUN 26 H 20 (9-20) mg/dL Creatinine 1.34 H 1.26 H (0.66-1.25) mg/dL Glucose 84 77 (74-99) mg/dL Calcium 8.0 L 8.1 L (8.4-10.2) mg/dL AST 43 (17-59) U/L ALT 26 (21-72) U/L Alkaline Phosphatase 66 (38-126) U/L Total Protein 5.4 L (6.3-8.2) g/dL Albumin 2.7 L (3.5-5.0) g/dL Calcium panel 05/14/19 05/15/19 Range/Units 14:50 08:17 Calcium 8.0 L 8.1 L (8.4-10.2) mg/dL Albumin 2.7 L (3.5-5.0) g/dL Pituitary panel 05/14/19 05/15/19 Range/Units 14:50 08:17 Sodium 132 L 135 L (137-145) mmol/L Potassium 4.4 4.0 (3.5-5.1) mmol/L Chloride 92 L 98 (98-107) mmol/L Carbon Dioxide 32 H 27 (22-30) mmol/L BUN 26 H 20 (9-20) mg/dL Creatinine 1.34 H 1.26 H (0.66-1.25) mg/dL Glucose 84 77 (74-99) mg/dL Calcium 8.0 L 8.1 L (8.4-10.2) mg/dL Adrenal panel 05/14/19 05/15/19 Range/Units 14:50 08:17 Sodium 132 L 135 L (137-145) mmol/L Potassium 4.4 4.0 (3.5-5.1) mmol/L Chloride 92 L 98 (98-107) mmol/L Carbon Dioxide 32 H 27 (22-30) mmol/L BUN 26 H 20 (9-20) mg/dL Creatinine 1.34 H 1.26 H (0.66-1.25) mg/dL Glucose 84 77 (74-99) mg/dL Calcium 8.0 L 8.1 L (8.4-10.2) mg/dL Total Bilirubin 0.7 (0.2-1.3) mg/dL AST 43 (17-59) U/L ALT 26 (21-72) U/L Alkaline Phosphatase 66 (38-126) U/L Total Protein 5.4 L (6.3-8.2) g/dL Albumin 2.7 L (3.5-5.0) g/dL - Imaging Chest x-ray: report reviewed, image reviewed CT scan - abdomen: report reviewed, image reviewed CT scan - chest: report reviewed, image reviewed CT scan - pelvis: report reviewed, image reviewed Assessment and Plan Assessment: 1. Large left-sided pleural effusion, likely malignant 2. 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 Pulmonary embolism, bilateral DVTs, on Eliquis for anticoagulation, last do se 05/13/2019 4. [employer] shunt 5. Back surgery for resection of spinal tumor 6. Previous tobacco dependence Plan: Patient seen and examined at the bedside with present. Chart/diagnostics reviewed. Case discussed with Dr. De La Rosa. We did discuss placement of a Pleurx catheter with the patient and his , and this is an agreeable treatment to both of them. Patient will need to be off anticoagulation for another couple days and allow fluid to build up in order to place Pleurx catheter. Likely will not place catheter until Saturday. Continue medical management of other comorbidities per primary care service, pulmonology, and oncology. More recommendations to follow. Thank you for this consult. Please call us with any further questions Time with Patient: Greater than 30
--- NOTE | 2019-05-15 15:17 | P.PN ---
Subjective Progress Note Date: 05/15/19 Principal diagnosis: Metastatic Renal Cell Audible crackles. Alert and oriented Objective - Vital Signs Vital signs: Vital Signs Temp 97.4 F L 05/15/19 13:27 Pulse 97 05/15/19 13:27 Resp 17 05/15/19 13:27 BP 93/64 05/15/19 13:27 Pulse Ox 95 05/15/19 13:27 Intake & Output 05/14/19 05/15/19 05/15/19 18:59 06:59 18:59 Intake Total 870 590 760 Output Total 1900 Balance -1030 590 760 Intake: Intake, IV Titration 290 160 Amount Sodium Chloride 0.9% 1, 240 160 000 ml @ 20 mls/hr IV . Q24H [facility] Rx#:[id number] cefTRIAXone 1 gm In 50 Sodium Chloride 0.9% 50 ml @ 100 mls/hr IVPB ONCE STA Rx#:[id number] Oral 580 590 600 Output: Drainage 1900 Left Chest 1900 Other: # Voids 1 1 # Bowel Movements 4 1 - Constitutional General appearance: Present: average body habitus, no acute distress - EENT Eyes: Present: EOMI, poor dentition ENT: Present: NA/AT, normal oropharynx - Neck Details: supple - Respiratory Respiratory: bilateral: rhonchi (mild increase effort) - Cardiovascular Heart rate: 110 Rhythm: regularly irregular - Peripheral edema leg Peripheral Edema: bilateral: 1+ - Gastrointestinal General gastrointestinal: Present: soft - Integumentary Integumentary: Present: pale - Neurologic Neurologic Comment(s): no focal defects - Musculoskeletal Musculoskeletal: Present: generalized weakness - Psychiatric Psychiatric: Present: A&O x's 3 - Labs CBC & Chem 7: 05/15/19 08:17 05/15/19 08:17 Labs: Abnormal Lab Results - Last 24 Hours (Table) 05/14/19 05/14/19 05/15/19 Range/Units 14:50 14:50 08:17 WBC 3.3 L 3.1 L (3.8-10.6) k/uL RBC 3.43 L 3.61 L (4.30-5.90) m/uL Hgb 11.2 L 12.2 L (13.0-17.5) gm/dL Hct 35.8 L 38.0 L (39.0-53.0) % MCV 104.4 H 105.3 H (80.0-100.0) fL RDW 19.1 H 19.1 H (11.5-15.5) % Lymphocytes # 0.3 L 0.4 L (1.0-4.8) k/uL Macrocytosis Marked A Marked A Sodium 132 L (137-145) mmol/L Chloride 92 L (98-107) mmol/L Carbon Dioxide 32 H (22-30) mmol/L BUN 26 H (9-20) mg/dL Creatinine 1.34 H (0.66-1.25) mg/dL Calcium 8.0 L (8.4-10.2) mg/dL Total Protein 5.4 L (6.3-8.2) g/dL Albumin 2.7 L (3.5-5.0) g/dL 05/15/19 Range/Units 08:17 WBC (3.8-10.6) k/uL RBC (4.30-5.90) m/uL Hgb (13.0-17.5) gm/dL Hct (39.0-53.0) % MCV (80.0-100.0) fL RDW (11.5-15.5) % Lymphocytes # (1.0-4.8) k/uL Macrocytosis Sodium 135 L (137-145) mmol/L Chloride (98-107) mmol/L Carbon Dioxide (22-30) mmol/L BUN (9-20) mg/dL Creatinine 1.26 H (0.66-1.25) mg/dL Calcium 8.1 L (8.4-10.2) mg/dL Total Protein (6.3-8.2) g/dL Albumin (3.5-5.0) g/dL Microbiology - Last 24 Hours (Table) 05/14/19 14:00 Gram Stain - Preliminary Pleural Fluid Body Fluid Culture - Preliminary 05/14/19 14:00 Acid Fast Bacilli Smear - Final Pleural Fluid Acid Fast Bacilli Culture - Preliminary 05/13/19 22:24 Blood Culture - Preliminary Blood No Growth after 24 hours 05/14/19 14:00 Fungal Culture - Preliminary Pleural Fluid Assessment and Plan Plan: Assessment and Plan Pleural effusion: US done, plan for thoracentesis for palliation of symptoms. Pulm will send for cytology. I am not aware of any previous malignant effusions. If positive, could indicate disease progression. Metastatic renal cell carcinoma: Pt has been on votrient for since about 10/2017. Nost recent scan 04/23 did not have evidence for disease progression. Will hold votrient for a few days while inpatient. Pending thoracentesis and cytology He has to continue to hold zometa for bone mets due to poor dentition DVT (deep venous thrombosis): Cont eliquis for now Plan: - Hold Votrient to further evaluate Stool OB, as Votrient Anti-angiogenesis, rec GI eval - Await Cytology to assess for progressive disease - Eliquis on hold for probable Pleurex drain placement (CTS following) I have completed the full history and physical of this patient and developed the complete impression and plan, Agree with Ami MARIN, dictated as a scribe
[2019-05-15] MEDS: PANTOPRAZOLE 40 MG TABLET PO SCH (15:46)
[2019-05-16 05:07] VITALS: RESP 16
[2019-05-16] MEDS: LEVOTHYROXINE 112 MCG TAB PO SCH (05:52)
[2019-05-16] MEDS: GABAPENTIN 400 MG CAP PO SCH ×2 (07:20→17:39)
[2019-05-16] MEDS: CITALOPRAM HYDROBROMIDE 20 MG TAB PO SCH (07:21)
[2019-05-16] MEDS: TAMSULOSIN 0.4 MG CAP.ER.24H PO SCH (07:21)
[2019-05-16 07:22] LABS: Calcium 7.9 mg/dL (8.4-10.2); Potassium 3.9 mmol/L (3.5-5.1)
[2019-05-16] MEDS: PANTOPRAZOLE 40 MG TABLET PO SCH (07:22)
[2019-05-16] MEDS: FUROSEMIDE 40 MG TAB PO SCH (07:22)
[2019-05-16] MEDS: FERROUS SULFATE 325 MG TAB PO SCH (07:22)
[2019-05-16] MEDS: ACETAMINOPHEN TAB 500 MG TAB PO SCH (07:22)
[2019-05-16] MEDS: ARIPiprazole 5 MG TAB PO SCH (07:23)
[2019-05-16 07:48] LABS: Anisocytosis Slight; Basophils # (A) 0.1 k/uL (0-0.2); Basophils % (A) 3 %; Eosinophils # (A) 0.1 k/uL (0-0.7); Eosinophils % (A) 3 %; HCT 34.9 % (39.0-53.0); HGB 11.2 gm/dL (13.0-17.5); Hypochromasia Marked; Lymphocytes # (A) 0.3 k/uL (1.0-4.8); Lymphocytes % (A) 9 %; MCH 33.4 pg (25.0-35.0); MCHC 32.1 g/dL (31.0-37.0); MCV 103.9 fL (80.0-100.0); Macrocytosis Marked; Mean Platelet Volume 6.4; Monocytes # (A) 0.2 k/uL (0-1.0); Monocytes % (A) 7 %; Neutrophils # (A) 2.5 k/uL (1.3-7.7); Neutrophils % (A) 76 %; Platelet Count 280 k/uL (150-450); Poikilocytosis Marked; RBC 3.36 m/uL (4.30-5.90); RDW 18.9 % (11.5-15.5); WBC 3.3 k/uL (3.8-10.6)
--- NOTE | 2019-05-16 07:58 | XR ---
EXAMINATION TYPE: XR chest 1V portable DATE OF EXAM: 05/16/2019 HISTORY: effusion. REFERENCE: Previous study dated 05/14/2019. FINDINGS: There has been extensive pia fixation of the thoracolumbar spine. Tubing projects over the right chest. There is increased opacity at the left lung base. This is likely on the basis of pleural fluid and ai rspace disease. This may be minimally improved compared to previous. The right lung is clear. Heart s ize is obscured. IMPRESSION: THERE MAY BE SLIGHT IMPROVED AERATION OF THE LEFT LUNG BASE.
[2019-05-16] MEDS: BUDESONIDE 1 MG/2 ML NEBU INHALATION SCH (09:15)
--- NOTE | 2019-05-16 10:24 | P.PN ---
Subjective Progress Note Date: 05/16/19 Principal diagnosis: Left-sided pleural effusion. 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 Patient is currently laying in bed in no acute distress. Denies pain, does not appear to have any shortness of breath presently. Appears very sleepy, states he did not sleep well last night. Objective - Vital Signs Vital signs: Vital Signs Temp 98.4 F 05/16/19 05:00 Pulse 97 05/16/19 09:26 Resp 16 05/16/19 05:00 BP 102/70 05/16/19 05:00 Pulse Ox 98 05/16/19 09:16 Intake & Output 05/15/19 05/16/19 05/16/19 18:59 06:59 18:59 Intake Total 760 2390 Balance 760 2390 Intake: Intake, IV Titration 160 240 Amount Sodium Chloride 0.9% 1, 160 240 000 ml @ 20 mls/hr IV . Q24H [facility] Rx#:[id number] Oral 600 2150 Other: # Voids 1 # Bowel Movements 1 - Constitutional General appearance: Present: cooperative, no acute distress - Respiratory Details: Lungs sounds coarse bilaterally with diminished breath sounds in the left base. Respirations even, nonlabored. Currently on 5 L nasal cannula with oxygen saturation 98%. - Cardiovascular Details: S1, S2 present. Regular rate and rhythm, sinus rhythm on telemetry. Palpable peripheral pulses bilaterally. Trace bilateral lower extremity edema present. No calf pain or tenderness noted. - Gastrointestinal Gastrointestinal Comment(s): Abdomen soft, nontender, nondistended. Active bowel sounds present 4 quadrant s. Tolerating diet. - Genitourinary Genitourinary Comment(s): Continues to void - Integumentary Integumentary Comment(s): Skin is warm dry with evidence of good perfusion. - Neurologic Neurologic: Present: CNII-XII intact - Musculoskeletal Musculoskeletal: Present: generalized weakness - Psychiatric Psychiatric: Present: A&O x's 3, appropriate affect, intact judgment & insight - Allied health notes Allied health notes reviewed: nursing - Labs CBC & Chem 7: 05/16/19 06:36 05/16/19 06:36 Labs: Abnormal Lab Results - Last 24 Hours (Table) 05/16/19 05/16/19 Range/Units 06:36 06:36 WBC 3.3 L (3.8-10.6) k/uL RBC 3.36 L (4.30-5.90) m/uL Hgb 11.2 L (13.0-17.5) gm/dL Hct 34.9 L (39.0-53.0) % MCV 103.9 H (80.0-100.0) fL RDW 18.9 H (11.5-15.5) % Lymphocytes # 0.3 L (1.0-4.8) k/uL Macrocytosis Marked A Sodium 133 L (137-145) mmol/L Chloride 96 L (98-107) mmol/L Carbon Dioxide 32 H (22-30) mmol/L Calcium 7.9 L (8.4-10.2) mg/dL Microbiology - Last 24 Hours (Table) 05/13/19 22:24 Blood Culture - Preliminary Blood No Growth after 48 hours 05/14/19 14:00 Gram Stain - Preliminary Pleural Fluid Body Fluid Culture - Preliminary - Imaging and Cardiology Chest x-ray: report reviewed, image reviewed Assessment and Plan Assessment: 1. Large left-sided pleural effusion, likely malignant 2. 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 Pulmonary embolism, bilateral DVTs, on Eliquis for anticoagulation, last dose 05/13/2019 4. HAND LACER shunt 5. Back surgery for resection of spinal tumor 6. Previous tobacco dependence Plan: 1. Will defer Pleurx catheter at this time as patient just had thoracentesis, need to allow fluid to build back up. This was discussed with the patient and his and they're in agreement. This was also discussed with Dr. Hernández. 2. Patient may be discharged to home from our standpoint when okay with other service lines. Will place our contact information on the discharge plan. 3. Medical management of other comorbidities per primary care service, pulmonology, oncology. May resume Eliquis. 4. Please call us with any further questions. Time with Patient: Greater than 30
--- NOTE | 2019-05-16 10:36 | P.PN ---
Subjective Progress Note Date: 05/16/19 Patient feels much better after thoracentesis. About 2.1 L of bloody fluid were drained. No history of any fever/chills/nausea/vomiting. Has not had any obvious bleeding or black stools. Objective - Vital Signs Vital signs: Vital Signs Temp 98.4 F 05/16/19 05:00 Pulse 97 05/16/19 09:26 Resp 16 05/16/19 07:30 BP 102/70 05/16/19 05:00 Pulse Ox 98 05/16/19 09:16 Intake & Output 05/15/19 05/16/19 05/16/19 18:59 06:59 18:59 Intake Total 760 2390 Balance 760 2390 Intake: Intake, IV Titration 160 240 Amount Sodium Chloride 0.9% 1, 160 240 000 ml @ 20 mls/hr IV . Q24H [facility] Rx#:[id number] Oral 600 2150 Other: Voiding Method Bedside Commode # Voids 1 # Bowel Movements 1 - Constitutional General appearance: Present: no acute distress - EENT Eyes: Present: EOMI ENT: Present: hearing grossly normal, normal oropharynx - Respiratory Respiratory: left: diminished - Cardiovascular Rhythm: regular Heart sounds: normal: S1, S2 - Gastrointestinal General gastrointestinal: Present: normal bowel sounds, soft - Integumentary Integumentary: Present: normal - Neurologic Neurologic Comment(s): Slow affect and mild dysarthria, chronic, stable Neurologic: Present: CNII-XII intact - Musculoskeletal Musculoskeletal: Present: generalized weakness, strength equal bilaterally - Psychiatric Psychiatric: Present: A&O x's 3, appropriate affect - Labs CBC & Chem 7: 05/16/19 06:36 05/16/19 06:36 Labs: Abnormal Lab Results - Last 24 Hours (Table) 05/16/19 05/16/19 Range/Units 06:36 06:36 WBC 3.3 L (3.8-10.6) k/uL RBC 3.36 L (4.30-5.90) m/uL Hgb 11.2 L (13.0-17.5) gm/dL Hct 34.9 L (39.0-53.0) % MCV 103.9 H (80.0-100.0) fL RDW 18.9 H (11.5-15.5) % Lymphocytes # 0.3 L (1.0-4.8) k/uL Macrocytosis Marked A Sodium 133 L (137-145) mmol/L Chloride 96 L (98-107) mmol/L Carbon Dioxide 32 H (22-30) mmol/L Calcium 7.9 L (8.4-10.2) mg/dL Microbiology - Last 24 Hours (Table) 05/13/19 22:24 Blood Culture - Preliminary Blood No Growth after 48 hours 05/14/19 14:00 Gram Stain - Preliminary Pleural Fluid Body Fluid Culture - Preliminary Assessment and Plan (1) Pleural effusion Narrative/Plan: Given the clinical presentation, this is most likely malignant and presents progression of malignancy. CT scans also showed possible endobronchial component in the pelvis to the left lower lobe, with evidence of left lower lobe collapse. The patient is symptomatically much improved. Cardiac thoracic surgery were consulted for Pleurx catheter. This was tentatively scheduled for next week, with the patient's family wants to take him home over the weekend and bring him back as an outpatient if symptoms worsen. This appears to be reasonable. - Case was discussed with CT surgery. The patient was previously on Eliquis which was held for the thoracentesis. As the PleuRx catheter is not scheduled yet, and may not be needed, if his symptoms do not recur rapidly, it was agreed to start patient back on anticoagulation. Given the short half life of this medication, it would be quite acceptable to hold it for one day prior to the procedure if the patient does end up needing the catheter. Current Visit: Yes Status: Acute Priority: High Code(s): J90 - PLEURAL EFFUSION, NOT ELSEWHERE CLASSIFIED SNOMED Code(s): 69613224 (2) Metastatic renal cell carcinoma Narrative/Plan: The clinical picture is highly suggestive of progression. Therefore it is recommended that the patient's Votrient be stopped at this time. Cytology is pending. If this is positive this will confirm progression, and the patient was thus require a change in therapy anyway. If cytology is negative then the decision to restart him back on the same medication, versus a change based on clinical evidence of progression, would be made by his primary oncologist as an outpatient. Current Visit: Yes Status: Chronic Priority: High Code(s): C64.9 - MALIGNANT NEOPLASM OF UNSP KIDNEY, EXCEPT RENAL PELVIS SNOMED Code(s): 898711673 (3) DVT (deep venous thrombosis) Narrative/Plan: Resumption of anticoagulation is recommended as discussed above, with stoppage for one day if the patient needs a repeat procedure Current Visit: No Status: Chronic Priority: Medium Code(s): I82.409 - ACUTE EMBOLISM AND THOMBOS UNSP DEEP VN UNSP LOWER EXTREMITY SNOMED Code(s): 270189501
--- NOTE | 2019-05-16 12:00 | P.PN ---
Subjective Progress Note Date: 05/16/19 Principal diagnosis: Acute hypoxic respiratory failure secondary to a near complete opacification of the left lung with large left pleural effusion. The patient is seen today 05/15/2019 in follow-up on the regular medical floor. He is awake and alert in no acute distress. Resting comfortably in bed. Breathing a bit easier today as compared to yesterday. On 5 L nasal cannula to maintain O2 saturations in the 90s. He is afebrile. Hemodynamically stable. He is status post 2100 ML's of bloody left pleural effusion removed yesterday by Dr. Hernández. Exudative in nature with the total protein 3.8 and LDH 626. Culture and cytology are pending. White count 3.1. Hemoglobin 12.2. Creatinine 1.26. The patient is seen today 05/16/2019 in follow-up on the regular medical floor. He remains awake and alert in no acute distress. Chest x-ray shows slight improvement in the aeration of the left lung base. Currently on 5 L high flow nasal cannula to maintain O2 saturations in the 90s. He is afebrile. Hemodynamically stable. Pleural fluid cultures pending. Cytology pending. White count 3.3. Hemoglobin 11.2. Creatinine 1.19. Objective - Vital Signs Vital signs: Vital Signs Temp 98.4 F 05/16/19 05:00 Pulse 97 05/16/19 09:26 Resp 16 05/16/19 07:30 BP 102/70 05/16/19 05:00 Pulse Ox 98 05/16/19 09:16 Intake & Output 05/15/19 05/16/19 05/16/19 18:59 06:59 18:59 Intake Total 760 2390 Balance 760 2390 Intake: Intake, IV Titration 160 240 Amount Sodium Chloride 0.9% 1, 160 240 000 ml @ 20 mls/hr IV . Q24H [facility] Rx#:[id number] Oral 600 2150 Other: Voiding Method Bedside Commode # Voids 1 # Bowel Movements 1 - Exam GENERAL EXAM: Alert, pleasant 48 year old gentleman, comfortable in no apparent distress. On 5 L nasal cannula. HEAD: Normocephalic. EYES: Normal reaction of pupils, equal size. NOSE: Clear with pink turbinates. THROAT: No erythema or exudates. NECK: No masses, no JVD. CHEST: No chest wall deformity. LUNGS: Equal air entry with crackles, diminished in the left lung base. CVS: S1 and S2 normal with no audible murmur, regular rhythm. ABDOMEN: No hepatosplenomegaly, normal bowel sounds, no guarding or rigidity. SPINE: No scoliosis or deformity SKIN: No rashes CENTRAL NERVOUS SYSTEM: Slow to respond due to shunting the brain from metastasi s. Tone is normal in all 4 extremities. EXTREMITIES: There is no peripheral edema. No clubbing, no cyanosis. Peripheral pulses are intact. - Labs CBC & Chem 7: 05/16/19 06:36 05/16/19 06:36 Labs: Abnormal Lab Results - Last 24 Hours (Table) 05/16/19 05/16/19 Range/Units 06:36 06:36 WBC 3.3 L (3.8-10.6) k/uL RBC 3.36 L (4.30-5.90) m/uL Hgb 11.2 L (13.0-17.5) gm/dL Hct 34.9 L (39.0-53.0) % MCV 103.9 H (80.0-100.0) fL RDW 18.9 H (11.5-15.5) % Lymphocytes # 0.3 L (1.0-4.8) k/uL Macrocytosis Marked A Sodium 133 L (137-145) mmol/L Chloride 96 L (98-107) mmol/L Carbon Dioxide 32 H (22-30) mmol/L Calcium 7.9 L (8.4-10.2) mg/dL Microbiology - Last 24 Hours (Table) 05/14/19 14:00 Gram Stain - Preliminary Pleural Fluid Body Fluid Culture - Preliminary 05/13/19 22:24 Blood Culture - Preliminary Blood No Growth after 48 hours Assessment and Plan Assessment: Impression: #1 Acute hypoxic respiratory failure secondary to moderate to large pleural effusion with near complete opacification of the left lung. Status post thoracentesis with 2.1 L of exudative fluid removed. Cultures and cytology pending. #2 Status post right nephrectomy secondary to kidney cancer. #3 Metastatic hypernephroma to the spine and brain. #4 Hypothyroidism. #5 History of anxiety. #6 Previous history of tobacco dependence. Plan: The patient was seen and evaluated by Dr. Hernández. We'll continue with his current treatment plan. Titrate down the FiO2 as tolerated. The plan is for the Pleurx catheter placement on 05/18/2019. We'll continue with his current medications. Increase his activity as tolerated. We'll continue to follow. I, the cosigning physician, performed a history & physical examination of the patient. Lungs sounds have crackles, diminished in the left base. Maintaining good O2 saturations in the 90s on 2 L/m per nasal cannula. I discussed the assessment and plan of care with my nurse practitioner, Mini Samson. I attest to the above note as dictated by her.
[2019-05-16] MEDS: ALPRAZolam 1 MG TAB PO SCH ×3 (12:28→17:39)
[2019-05-16 13:20] VITALS: BP 97/67; TEMP 97.9
[2019-05-16 15:21] VITALS: PULSE 101
--- NOTE | 2019-05-16 16:25 | P.PN ---
Subjective Progress Note Date: 05/15/19 Principal diagnosis: Pleural effusion Patient is a 48-year-old male with a past medical history of metastatic renal cell carcinoma of the right kidney came to ER with complaints of worsening shortness of breath. Patient is currently on immunotherapy. Patient also had change in mental status on admission. Patient was gurgling and having worsening shortness of breath as per his and patient was brought to the hospital was found have significant left-sided pleural effusion. 05/15/2019 Patient is currently awake alert oriented 3. Lying in the bed comfortably but is still requiring oxygen with another cannula. Patient is status post left- sided thoracentesis with 2.1 L fluid removal mostly exhibited 2. Fluid cytology is pending at this time. Otherwise patient is is complaining that he did have dark-colored stools. Patient is on iron supplementation. Hemoglobin actually improved to 12.7. We consider gastroenterology evaluation. Patient was started on Protonix otherwise. Patient does not have any fever or chills. No chest pain. No worsening shortne ss of breath. Pulmonary, CT surgery and oncology is following. chest x-ray showed there may be slight improved aeration of the left lung base. Current medications reviewed. Objective - Vital Signs Vital signs: Vital Signs Temp 97.4 F L 05/15/19 13:27 Pulse 97 05/15/19 13:27 Resp 17 05/15/19 13:27 BP 93/64 05/15/19 13:27 Pulse Ox 95 05/15/19 13:27 Intake & Output 05/15/19 05/15/19 05/16/19 06:59 18:59 06:59 Intake Total 590 760 Balance 590 760 Intake: Intake, IV Titration 160 Amount Sodium Chloride 0.9% 1, 160 000 ml @ 20 mls/hr IV . Q24H [facility] Rx#:[id number] Oral 590 600 Other: # Voids 1 # Bowel Movements 1 - Exam PHYSICAL EXAMINATION: Patient is lying in the bed comfortably, no acute distress, awake alert and oriented. Generalized weakness.. HEENT: Normocephalic. Neck is supple. Pupils reactive. Nostrils clear. Oral cavity is moist. Ears reveal no drainage. Neck reveals no JVD, carotid bruits, or thyromegaly. CHEST EXAMINATION: Trachea is central. Symmetrical expansion. Left basilar diminished air entry and crackles positive. No wheezing. CARDIAC: Normal S1, S2 with no gallops. No murmurs ABDOMEN: Soft. Bowel sounds normal. No organomegaly. No abdominal bruits. Extremities: reveal no edema. No clubbing or cyanosis Neurologically awake, alert, oriented x3 with well-coordinated movements. No focal deficits noted Skin: No rash or skin lesions. Psychiatric: Coperative. Nonsuicidal Musculoskeletal: No joint swelling or deformity. Normal range of motion. - Labs CBC & Chem 7: 05/16/19 06:36 05/16/19 06:36 Labs: Abnormal Lab Results - Last 24 Hours (Table) 05/15/19 05/15/19 Range/Units 08:17 08:17 WBC 3.1 L (3.8-10.6) k/uL RBC 3.61 L (4.30-5.90) m/uL Hgb 12.2 L (13.0-17.5) gm/dL Hct 38.0 L (39.0-53.0) % MCV 105.3 H (80.0-100.0) fL RDW 19.1 H (11.5-15.5) % Lymphocytes # 0.4 L (1.0-4.8) k/uL Macrocytosis Marked A Sodium 135 L (137-145) mmol/L Creatinine 1.26 H (0.66-1.25) mg/dL Calcium 8.1 L (8.4-10.2) mg/dL Microbiology - Last 24 Hours (Table) 05/14/19 14:00 Gram Stain - Preliminary Pleural Fluid Body Fluid Culture - Preliminary 05/14/19 14:00 Acid Fast Bacilli Smear - Final Pleural Fluid Acid Fast Bacilli Culture - Preliminary 05/13/19 22:24 Blood Culture - Preliminary Blood No Growth after 24 hours 05/14/19 14:00 Fungal Culture - Preliminary Pleural Fluid Assessment and Plan Assessment: Acute hypoxic respiratory failure secondary to moderate to large pleural effusion. Status post thoracentesis with 2 L 2.1 L fluid removal mostly exudative. Fluid cytology is pending. Metastatic renal cell carcinoma status post right nephrectomy and metastases to spine and brain Altered mental status possible acute on chronic metabolic encephalopathy secondary to brain metastases History of back surgery for tumor removal Hypothyroidism Anxiety Please history of nicotine addiction History of DVT currently on anticoagulation which is on hold for Pleurx catheter placement Plan: Patient be continued on oxygen and titrate down to room air gradually. CT surgery is planning for Pleurx cath placement. Follow-up fluid cytology report for any metastatic cells in the pleural fluid, depending on which immunotherapy to be changed as per oncology. Patient was started on PPI. Continue to monitor H&H. Discussed with his at bedside in detail. Prognosis is poor with metastatic cancer and other comorbid conditions.. Time with Patient: Greater than 30
== END 2019-05-16 18:26 | disposition home health service (06) | DRG 189 ==
LOC: EC 19:51 → 3NMEDONC 21:49
PROVIDERS: ADMIT Internal Medicine; ATTEND Internal Medicine
PROC: 0W9B3ZX Drainage of Left Pleural Cavity, Percutaneous Approach, Diagnostic (ICD-10-PCS; principal; 2019-05-14)
DX: J96.01 Acute respiratory failure with hypoxia (principal); G93.41 Metabolic encephalopathy; C79.31 Secondary malignant neoplasm of brain; C64.1 Malignant neoplasm of right kidney, except renal pelvis; C79.51 Secondary malignant neoplasm of bone; G95.20 Unspecified cord compression; J90 Pleural effusion, not elsewhere classified; E03.9 Hypothyroidism, unspecified; F41.9 Anxiety disorder, unspecified; Z86.711 Personal history of pulmonary embolism; Z86.718 Personal history of other venous thrombosis and embolism; Z79.01 Long term (current) use of anticoagulants; Z79.890 Hormone replacement therapy; Z79.899 Other long term (current) drug therapy; Z87.891 Personal history of nicotine dependence; Z90.5 Acquired absence of kidney; Z92.3 Personal history of irradiation; Z98.2 Presence of cerebrospinal fluid drainage device; F10.21 Alcohol dependence, in remission
CPT/HCPCS: 36415; 71045; 71046; 71250; 74176; 76604; 80048; 80053; 82272; 82945; 83605; 83615; 83880; 84157; 85025; 87040; 87070; 87102; 87116; 87205; 87206; 87252; 87324; 87496; 87498; 87502; 87529; 87634; 87798; 88108; 88305; 88341; 88342; 89050; 94640; 94760; 96365; 99285